=== PATIENT | female | born 1960 | race Caucasian/White ===

== ENCOUNTER 2019-05-15 10:32 | Emergency (ER) | payer BC ==
--- OUTSIDE RECORDS SUMMARY | 2019-05-15 10:50 | XMS REPORT | Continuity of Care Document ---
:1960 External Reference #:[id number] Author Name JIM Roberts (transmitted by agent of provider Arminda Erickson) Address [address] [place] [id number] Care Team Providers Name Role Phone Skye Hinds M.D. 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 Onset: 05/21/2012 Rheumatoid arthritis Chepe Kelley M.D. Onset: 05/21/2012 Medications Usp (Current) Use Encounter Chepe Kelley M.D. Onset: 02/2012 Taking medication JIM Roberts Onset: 07/26/2014 Psoriatic dactylitis JIM Roberts Onset: 06/28/2015 Social History Type Date Description Comments Sex Unknown Cigarette Use Negative For current cigarette smoker Tobacco Use Start: Unknown End: Former Cigarette Smoker Unknown Smoking Status Reviewed: 05/03/19 Former Cigarette Smoker ETOH Use Denies alcohol use Tobacco Use Start: Unknown End: Patient is a former quit in 1993 Unknown smoker Recreational Drug Use Denies Drug Use Exercise Type/Frequency Exercises regularly walking, swimming Allergies, Adverse Reactions, Alerts Active Allergies Reaction Severity Comments Date No Known Drug Allergy 12/12/2010 Latex 09/01/2013 Medications Active Medications SIG Qnty Indications Ordering Date Provider Syringe/Luer use for injection 12units Kayla Selby, 11/25/2018 Lock/3ML/25G X of vitamin b 12 PROGRAM SUPPORT ASSISTANT 1-1/2" every week 25G X 1-1/2" 3 ML Misc Mometasone Furoate 1 act 1 x daily 17gm J30.9 Kayla Selby, 11/18/2018 PROGRAM SUPPORT ASSISTANT 50mcg/Act Suspension Cyanocobalamin 1 milliliters 6ml D51.9 Kayla Landk, 11/18/2018 intramuscular PROGRAM SUPPORT ASSISTANT 1000mcg/ML Solution s3ulyot Olopatadine HCL Instill 1 Drop In 5units J30.9 Kayla Landk, 10/29/2018 0.1% Affected Eye(S) Two PROGRAM SUPPORT ASSISTANT Solution Times A Day Clobetasol use on lesions 2x 15gm L40.9 [facility] Bal, 10/29/2018 Propionate Emollient daily as needed PROGRAM SUPPORT ASSISTANT 0.05% Cream Enbrel Sureclick Inject The Contents 3.92units L40.59 [facility] Bal, 02/08 Of 1 Pen (50 MG) PROGRAM SUPPORT ASSISTANT 50mg/ml Solution Under The Skin Auto-Inject Every Week L40.9 Methotrexate Take 4 Tablets By 16tabs L40.59 [facility] Bal, FNP 03/29/2015 2.5mg Tablets Mouth Every Week Folic Acid take one tablet by 90tabs [facility] Bal, [facility] 03/22/2011 1mg Tablets mouth every day Claritin-D 24 Hour 1 po as needed.. 30tabs Unknown 10-240mg Tablets ER 24HR Synthroid 1 by mouth every 90tabs E03.9 [facility]g Table[facility] day (no generic) Pepcid ac Maximum please take Unknown Strength nightly 20mg Tablets Medications Administered in Office Medication SIG Qnty Indications Ordering Provider Date PPD Injection Unknown 05/21/2011 Immunizations CPT Code Status Date Vaccine Reaction Lot # [id number] Given 05/03/2019 Influenza Virus Vaccine, no immediate Quadrivalent ([id number]), reaction...jh pt. Derived From Cell tolerated well. [id number] Given 04/30/2018 Influenza Virus Vaccine, [id number] Quadrivalent, Split, Preservative Free 39425 Given 04/28/2017 Influenza Virus Vaccine, [id number] Quadrivalent, Split, Preservative Free 51145 Given 05/02/2016 Pneumococcal Conjugate [id number] Vaccine 13 Valent For Intramuscular Use 60947 Given 06/28/2015 Influenza Virus Vaccine, no reaction noted [id number] Quadrivalent, Split, Preservative Free 97937 Given 06/09/2013 Flu Vaccine Split Virus [id number] Preservative Free For Indiv [id number] Older Vital Signs Date Vital Result Comment 05/03/2019 1:08pm Height 62 inches 5'2" Weight 235.38 lb Heart Rate 72 /min BP Systolic Sitting 122 mmHg BP Diastolic Sitting 80 mmHg O2 % BldC Oximetry 98 % BMI (Body Mass Index) 43.0 kg/m2 11/18/2018 1:10pm Height 62 inches 5'2" Weight 229.25 lb Heart Rate 71 /min BP Systolic 121 mmHg BP Diastolic 84 mmHg Body Temperature 97.6 F O2 % BldC Oximetry 96 % BMI (Body Mass Index) 41.9 kg/m2 Results Test Date Facility Test Result H/L Range Note Comp Metabolic 04/30/2019 [facility] Sodium 140 mmol/L Normal 135-[address] [place] [address] [phone] Potassium 4.3 mmol/L Normal 3.5-5.0 Chloride 108 mmol/L Normal 101-111 Co2 Carbon Dioxide 26 mmol/L Normal 22-32 Anion Gap 6 mmol/L Normal 2-11 Glucose 99 mg/dL Normal 70-100 Blood Urea Nitrogen 15 mg/dL Normal 6-24 Creatinine 0.91 mg/dL Normal 0.51-0.95 BUN/Creatinine Ratio 16.5 Normal 8-20 Calcium 9.0 mg/dL Normal 8.6-10.3 Total Protein 6.2 g/dL Low 6.4-8.9 Albumin 3.8 g/dL Normal 3.2-5.2 Globulin 2.4 g/dL Normal 2-4 Albumin/Globulin Ratio 1.6 Normal 1-3 Total Bilirubin 1.10 mg/dL High 0.2-1.0 Alkaline Phosphatase 78 U/L Normal 34-104 Alt 13 U/L Normal 7-52 Ast 13 U/L Normal 13-39 Egfr Non- 63.1 >60 Egfr 76.3 >60 1 Laboratory test 04/30/2019 [facility] C Reactive 5.55 mg/L Normal <8.[address] [place] [address] [phone] CBC Auto Diff 04/30/2019 [facility] White Blood 7.8 Normal 3.5 -10.[address] Count 10^3/[place] [address] [phone] Red Blood Count 4.39 10^6/uL Normal 3.70-4.87 Hemoglobin 13.7 g/dL Normal 12.0-16.0 Hematocrit 41 % Normal 35-47 Mean Corpuscular Volume 94 fL Normal 80-97 Mean Corpuscular Hemoglobin 31 pg Normal 27-31 Mean Corpuscular HGB Conc 33 g/dL Normal 31-36 Red Cell Distribution Width 14 % Normal 10-15 Platelet Count 293 10^3/uL Normal 150-450 Mean Platelet Volume 7.3 fL Low 7.4-10.4 Abs Neutrophils 4.7 10^3/uL Normal 1.5-7.7 Abs Lymphocytes 2.1 10^3/uL Normal 1.0-4.8 Abs Monocytes 0.6 10^3/uL Normal 0-0.8 Abs Eosinophils 0.4 10^3/uL Normal 0-0.6 Abs Basophils 0.1 10^3/uL Normal 0-0.2 Abs Nucleated RBC 0.0 10^3/uL Granulocyte % 59.6 % Lymphocyte % 27.2 % Monocyte % 7.1 % Eosinophil % 5.2 % Basophil % 0.9 % Nucleated Red Blood Cells % 0.2 Laboratory test 04/30/2019 [facility] Erythrocyte Sed 24 mm/Hr Normal 0-[address] [place] [address] [phone] CBC Auto Diff 02/23/2019 [facility] White Blood 6.5 Normal 3.5 -10.[address] Count 10^3/[place] [address] [phone] Red Blood Count 4.57 10^6/uL Normal 3.70-4.87 Hemoglobin 14.4 g/dL Normal 12.0-16.0 Hematocrit 44 % Normal 35-47 Mean Corpuscular Volume 95 fL Normal 80-97 Mean Corpuscular Hemoglobin 32 pg High 27-31 Mean Corpuscular HGB Conc 33 g/dL Normal 31-36 Red Cell Distribution Width 14 % Normal 10-15 Platelet Count 316 10^3/uL Normal 150-450 Mean Platelet Volume 7.1 fL Low 7.4-10.4 Abs Neutrophils 4.0 10^3/uL Normal 1.5-7.7 Abs Lymphocytes 1.7 10^3/uL Normal 1.0-4.8 Abs Monocytes 0.5 10^3/uL Normal 0-0.8 Abs Eosinophils 0.3 10^3/uL Normal 0-0.6 Abs Basophils 0.0 10^3/uL Normal 0-0.2 Abs Nucleated RBC 0.0 10^3/uL Granulocyte % 61.5 % Lymphocyte % 26.1 % Monocyte % 7.0 % Eosinophil % 4.7 % Basophil % 0.7 % Nucleated Red Blood Cells % 0.0 Comp Metabolic 02/23/2019 [facility] Sodium 139 mmol/L Normal 135-[address] [place] [address] [phone] Potassium 4.4 mmol/L Normal 3.5-5.0 Chloride 104 mmol/L Normal 101-111 Co2 Carbon Dioxide 29 mmol/L Normal 22-32 Anion Gap 6 mmol/L Normal 2-11 Glucose 94 mg/dL Normal 70-100 Blood Urea Nitrogen 12 mg/dL Normal 6-24 Creatinine 0.89 mg/dL Normal 0.51-0.95 BUN/Creatinine Ratio 13.5 Normal 8-20 Calcium 9.3 mg/dL Normal 8.6-10.3 Total Protein 6.5 g/dL Normal 6.4-8.9 Albumin 4.1 g/dL Normal 3.2-5.2 Globulin 2.4 g/dL Normal 2-4 Albumin/Globulin Ratio 1.7 Normal 1-3 Total Bilirubin 1.20 mg/dL High 0.2-1.0 Alkaline Phosphatase 80 U/L Normal 34-104 Alt 14 U/L Normal 7-52 Ast 15 U/L Normal 13-39 Egfr Non- 64.7 >60 Egfr 78.3 >60 2 Laboratory test 02/23/2019 [facility] C Reactive 5.51 mg/L Normal <8.[address] [place] [address] [phone] Erythrocyte Sed Rate 21 mm/Hr Normal 0-29 Laboratory 02/23/2019 [facility] TSH (Thyroid 1.02 Normal 0.34 -5.60 [address] Stim Horm) mcIU/[place] [address] [phone] Lipid Profile 02/23/2019 [facility] Triglycerides 144 mg/dL 4 (Trig/Chol/HD [address]) [place] [address] [phone] Cholesterol 214 mg/dL 5 HDL Cholesterol 45.3 mg/dL 6 LDL Cholesterol 140 mg/dL 7 Laboratory test 02/23/2019 [facility] Vitamin B12 1209 pg/mL High 180-914 [address] [place] [address] [phone] 1 Because ethnic data is not always readily available, this report includes an eGFR for both -Americans and non- Americans. The National Kidney Disease Education Program (NKDEP) does not endorse the use of the MDRD equation for patients that are not between the ages of 18 and 70, are , have extremes of body size, muscle mass, or nutritional status, or are non- or non-. According to the National Kidney Foundation, irrespective of diagnosis, the stage of the disease is based on the level of kidney function: Stage Description GFR(mL/min/1.73 m(2)) 1 Kidney damage with normal or decreased GFR 90 2 Kidney damage with mild decrease in GFR 60-89 3 Moderate decrease in GFR 30-59 4 Severe decrease in GFR 15-29 5 Kidney failure <15 (or dialysis) 2 Because ethnic data is not always readily available, this report includes an eGFR for both -Americans and non- Americans. The National Kidney Disease Education Program (NKDEP) does not endorse the use of the MDRD equation for patients that are not between the ages of 18 and 70, are , have extremes of body size, muscle mass, or nutritional status, or are non- or non-. According to the National Kidney Foundation, irrespective of diagnosis, the stage of the disease is based on the level of kidney function: Stage Description GFR(mL/min/1.73 m(2)) 1 Kidney damage with normal or decreased GFR 90 2 Kidney damage with mild decrease in GFR 60-89 3 Moderate decrease in GFR 30-59 4 Severe decrease in GFR 15-29 5 Kidney failure <15 (or dialysis) 3 FASTING 10 HOUR 4 Desirable: <150 Borderline High: 150-199 High: 200-499 Very High: >500 5 Desirable: <200 Borderline High: 200-239 High: >239 6 Low: <40 Desirable: 40-60 High: >60 7 Desirable: <100 Near Optimal: 100-129 Borderline High: 130-159 High: 160-189 Very High: >189 8 Normal Range 180 to 914 Indeterminate Range 145 to 180 Deficient Range <145 Procedures Date Code Description Status 06/08/2018 [id number] Mammogram Completed Medical Devices Description No Information Available Encounters Type Date Location Provider Dx Diagnosis Office Visit 11/18/2018 [facility] Kayla Selby, E66.9 Obesity, 1:20p Medicine - [facility] unspecified E03.9 Hypothyroidism, unspecified J30.9 Allergic rhinitis, unspecified L02.414 Cutaneous abscess of left upper limb D51.9 Vitamin B12 deficiency anemia, unspecified K21.9 Gastro-esophageal reflux disease without esophagitis L73.9 Follicular disorder, unspecified Assessments Date Code Description Provider 05/03/2019 L40.59 Other psoriatic arthropathy Parvizofia Bal, [facility] 05/03/2019 L40.9 Psoriasis, unspecified Zsofia Bal, [facility] 05/03/2019 E66.9 Obesity, unspecified Zsofia Bal, [facility] 05/03/2019 Z79.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 Parvizofia Bal, [facility] 05/03/2019 Z23 Encounter for immunization Parvizoficlarisa Selby, [facility] 11/18/2018 E66.9 Obesity, unspecified Zsofia Bal, [facility] 11/18/2018 E03.9 Hypothyroidism, unspecified Zsofia Bal, [facility] 11/18/2018 J30.9 Allergic rhinitis, unspecified Zsofia Bal, [facility] 11/18/2018 L02.414 Cutaneous abscess of left upper limb Zsofia Bal, [facility] 11/18/2018 D51.9 Vitamin B12 deficiency anemia, unspecified Zsofia Bal, [facility] 11/18/2018 K21.9 Gastro-esophageal reflux disease without Parvizofia Bal, [facility] esophagitis 11/18/2018 L73.9 Follicular disorder, unspecified ParvizofiJIM Hewitt Plan of Treatment Future Appointment(s):11/04/2019 10:30 am - JIM Roberts at [facility]08/04/2019 1:20 pm - [facility] Kayla Selby, FNPL40.59 Other psoriatic arthropathyComments:Your inflammatory arthritis seems to be clinically and symptomatically well controlled at this time.Your latest laboratory tests indicate no detectable impairment of kidney and liver functions.Please, continue with the present medication regime.Continue with regular blood tests. You will need to have a blood test done about a week prior to your next appointment.You have a standing lab order on file. Please call the office if you develop any sign or symptoms of infection, increased skin or articular involvement or acute change in your health.Follow up:6 month Please reschedule [place] for [id number] Psoriasis, [id number] Obesity, unspecifiedComments: Discussed food choices that may effect general health Diet:Avoid eating or snacking to satiety.Avoid concentrated sweets, dietary fats, added sugars, and added saltThe "Mediterranean diet" is recommended: this diet in high in vegetables, fruits, nuts and grains (important sources of dietary fats), low to moderate amount of white meat, fish and dairy, minimum amount of dark meat.Please refer to [email or web address] Other 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
--- NOTE | 2019-05-15 11:57 | UC ---
Throat Pain/Nasal Perez HPI - HPI Summary HPI Summary: Patient is a 4-year-old female presenting with productive cough, sore throat, nasal congestion, and wheezing 3 days. Patient states she was seen in the walk -in clinic on Friday and they told her to hold off on antibiotic treatment and to be reevaluated if symptoms worsen. Patient states her symptoms have worsened including chills and more difficulty breathing. Patient states that she is concerned because she takes methotrexate and Enbrel for psoriatic arthritis. Patient states she did not take these medications this week because she has been ill. Notes nausea and headaches. Denies known fevers. Denies vomiting. Denies abdominal pain and diarrhea. Denies taking any medications to help alleviate symptoms. Patient states symptoms are worse tonight. She also notes that she is leaving for vacation in less than a week. - History of Current Complaint Chief Complaint: UCRespiratory Stated Complaint: CHEST COLD,COUGH SOB Hx Obtained From: Patient Onset/Duration: Gradual Onset, Lasting Days Severity: Moderate Pain Intensity: 7 Pain Scale Used: 0-10 Numeric - Allergies/Home Medications Allergies/Adverse Reactions: Allergies Allergy/AdvReac Type Severity Reaction Status Date / Time latex Allergy Rash Verified 05/15/19 11:02 Home Medications: Home Medications Etanercept [Enbrel Sureclick] 50 mg SQ WEEKLY 05/15/19 [History Confirmed ] GuaiFENesin DM* [Robitussin DM*] 10 ml PO Q6H PRN 05/15/19 [History Confirmed ] Loratadine/Pseudoephedrine [Claritin-D 24 Hour 10-240 mg] 1 tab PO DAILY PRN 09/01 [History Confirmed 05/15/19] PMH/Surg Hx/FS Hx/Imm Hx - Additional Past Medical History Additional PMH: Psoriatic arthritis Endocrine History: Hypothyroidism - Surgical History Surgical History: Yes Surgery Procedure, Year, and Place: Ovarian cyst removal. R arm surgery- plate to R elbow - Family History Known Family History: Positive: Cardiac Disease, Hypertension, Diabetes - Social History Occupation: Retired Alcohol Use: None Substance Use Type: None Smoking Status (MU): Never Smoked Tobacco Review of Systems All Other Systems Reviewed And Are Negative: Yes Constitutional: Positive: Chills, Fatigue. Negative: Fever ENT: Positive: Sore Throat, Nasal Discharge, Sinus Congestion, Sinus Pain/ Tenderness. Negative: Ear Ache Respiratory: Positive: Shortness Of Breath, Cough Cardiovascular: Positive: Negative Gastrointestinal: Positive: Nausea. Negative: Abdominal Pain, Vomiting, Diarrhea Musculoskeletal: Positive: Negative Neurological: Positive: Headache Physical Exam Triage Information Reviewed: Yes Appearance: Well-Appearing, No Pain Distress, Well-Nourished Vital Signs: Initial Vital Signs Temp 99.3 F 05/15/19 11:05 Pulse 80 05/15/19 11:05 Resp 18 05/15/19 11:05 BP 135/84 05/15/19 11:05 Pulse Ox 95 05/15/19 11:05 Vital Signs Reviewed: Yes Eyes: Positive: Conjunctiva Clear ENT: Positive: Hearing grossly normal, Pharyngeal erythema, TMs normal, Sinus tenderness, Uvula midline. Negative: Nasal congestion, Nasal drainage, Tonsillar swelling, Tonsillar exudate Neck exam: Normal Neck: Positive: Supple, Nontender, No Lymphadenopathy Respiratory: Positive: No respiratory distress, No accessory muscle use, Rhonchi - faint rhonchi right middle lobe, Wheezing - Bilateral upper lobe expiratory wheezing. Negative: Crackles, Stridor, Plerual rub Cardiovascular Exam: Normal Cardiovascular: Positive: RRR. Negative: Tachycardia, Bradycardia Neurological: Positive: Alert Psychological: Positive: Age Appropriate Behavior - 5 minutes away Diagnostics - Radiology chest Radiology Interpretation Completed By: Radiologist Summary of Radiographic Findings: IMPRESSION: #. Stigmata of probable obstructive lung disease. No acute pulmonary or cardiac process evident. Throat Pain/Nasal Course/Dx - Course Course Of Treatment: Patient chest x-ray negative for pneumonia but shows possible COPD findings. I am treating with Augmentin based on x-ray findings and physical exam findings. Also treated with antibiotics due to patient's immunosuppressant therapy. I chose Augmentin over doxycycline because patient is going on vacation and will be in the sun. Instructed patient to follow up with PCP if symptoms do not resolve within 7 days. Directed to go to ED if symptoms worsen. Patient voiced understanding and agreed with treatment plan. I also spoke with Dr. Duran about the patient who agreed with the treatment plan. - Differential Dx/Diagnosis Provider Diagnosis: Acute bronchitis, Upper respiratory infection Discharge ED - Sign-Out/Discharge Documenting (check all that apply): Patient Departure All imaging exams completed and their final reports reviewed: Yes - Discharge Plan Condition: Stable Disposition: HOME Prescriptions: Amoxicillin/Clavulanate TAB* [Augmentin TAB 875*] 875 mg PO BID #14 tab Patient Education Materials: Acute Bronchitis (ED) Referrals: Kayla Selby PODIATRIC AIDE [Primary Care Provider] - If Needed Additional Instructions: As discussed, take Augmentin as prescribed to treat possible bacterial infection. Stop taking your Methotrexate while you are taking this medication. Call your physician to ask when you may resume this medication. You may continue with symptomatic treatment, including over the counter decongestants and nasal sprays. Make sure you are getting plenty of rest and fluids. Follow up with your PCP if symptoms do not resolve within 1 week. Go to the Emergency Room if you experience fever, nausea, vomiting, or difficulty breathing. - Billing Disposition and Condition Condition: STABLE Disposition: Home
[2019-05-15 13:22] VITALS: BP 123/84
== END 2019-05-15 13:28 | disposition home or self-care (01) ==
LOC: UCCORT 10:32
DX: J20.9 Acute bronchitis, unspecified (principal); J06.9 Acute upper respiratory infection, unspecified; L40.50 Arthropathic psoriasis, unspecified; Z91.040 Latex allergy status
CPT/HCPCS: 71046; 99212; G0463